=== PATIENT | male | born 1975 | race Caucasian/White ===

== ENCOUNTER 2020-08-24 11:03 | Emergency (ER) | payer OTHER ==
[~2020-08-24] VITALS: Ht 172.7 cm; Wt 58.4 kg
[2020-08-24] MEDS ORDERED: SODIUM CHLORIDE 0.9% 1,000ML IVBOLUS ONE (11:30)
[2020-08-24] MEDS ORDERED: SODIUM CHLORIDE FLUSH 10ML SYR IVF ONE (11:30)
[2020-08-24] MEDS ORDERED: LIDOCAINE-MPF 1%, 5ML ONE ×2 (11:41→15:47)
--- NOTE | 2020-08-24 11:46 | NUR ---
THIS IS A 45 YEAR OLD MALE WHO STATES HE WAS WORKING AND HAD "PASSED OUT" FELL FOWARD AND HIT HEAD WITH LARGE LACERATION. PT BS 172 ,PLACED ON BET TAKER SINUS, CONTINOUS SP02 AND CYCLE VS. IV INFUSING WELL. REPORT TO STEPHANIE JESUS, PLAN OF CARE DISCUSSED. MOTHER AT BS
[2020-08-24 11:59] LABS: BASOPHILS % (AUTO) 1 % (0-1); EOSINOPHILS % (AUTO) 0 % (1-7); LYMPHOCYTES % (AUTO) 4 % (22-44); MEAN CORPUSCULAR HEMOGLOBIN 33.1 pg (27.5-34.5); MEAN CORPUSCULAR HGB CONC 33.5 g/dL (33.2-36.2); MEAN PLATELET VOLUME 9.4 fL (7.4-10.4); MONOCYTES % (AUTO) 3 % (2-9); NEUTROPHILS % (AUTO) 92 % (42-75); PLATELET COUNT 178 x10^3/uL (130-400); RED BLOOD COUNT 4.47 x10^6/uL (4.38-5.82); RED CELL DISTRIBUTION WIDTH 13.5 % (9.4-14.8)
[2020-08-24] MEDS ORDERED: LIDOCAINE 1%-EPI 1:100K, 50ML INFIL ONE (12:00)
--- NOTE | 2020-08-24 12:04 | NUR ---
REPORT RC'VD FROM STEPHANIE JESUS. PT RETURNED FROM CT VIA ESTER. SIGNIFICANT OTHER AT BS.
--- NOTE | 2020-08-24 12:05 | NUR ---
REPORT RC'VD FROM STEPHANIE JESUS. PT RETURNED FROM CT VIA ESTER. SIGNIFICANT OTHER AT BS.
--- NOTE | 2020-08-24 12:05 | NUR ---
pt back from CT. wound irrigated and reassessed by CAROLA Samano. all monitors in place. pt a&o, repss even and unlabored, states pain at tolerable level. report given to ANN MARIE Donahue at bedside.
[2020-08-24 12:06] LABS: ALBUMIN 3.8 g/dL (3.4-5.0); ANION GAP 7 mmol/L (5-15); CALCIUM 8.6 mg/dL (8.5-10.1); CHLORIDE 103 mmol/L (98-107); CREATININE 1.07 mg/dL (0.7-1.3)
--- NOTE | 2020-08-24 12:09 | NUR ---
ER PA AT BS TO NUMB PT'S FOREHEAD LACERATION.
[2020-08-24 12:22] LABS: MD SCAN
[2020-08-24] MEDS ORDERED: CEFAZOLIN 1,000 MG IM ONE (14:00)
--- NOTE | 2020-08-24 14:00 | NUR ---
ER PA SUTURED PT'S FOREHEAD LACERATION, PT TOLERATED WELL. WARDROBE MANAGER AT BS TO APPLY ABX OINTMENT AND DRESSING (ADAPTIC, GAUZE, KERLIX, KOBAN WRAP).
[2020-08-24 15:00] VITALS: BP 143/76
--- NOTE | 2020-08-24 15:05 | NUR ---
D/C INSTRUCTIONS, MEDS & F/U APPT RV'WD WITH PT AND MOTHER. RX GIVEN X1. HEAD INJURY PRECAUTIONS RV'WD WITH PT AND MOTHER; MOTHER STATES SHE WILL LIVES IN THE SAME BUILDING PT AND CAN MONITOR HIM TODAY/TOMORROW. PT AMBULATED OUT OF ED WITH MOTHER WITHOUT DIFFICULTY.
--- NOTE | 2020-08-24 15:30 | NUR ---
ANCEF DOSE WAS MISSED PRIOR TO DISCHARGE. CALLED PT'S MOTHER BACK TO HAVE PT RETURN TO ED FOR IM INJECTION OF ANCEF PER ER PA. MOTHER STATES SHE WILL DRIVE PT BACK TO ED TODAY.
[2020-08-24] MEDS ORDERED: CEFAZOLIN 1,000 MG ONE (15:46)
--- NOTE | 2020-08-24 17:44 | NUR ---
PT RETURNED TO ED WITH MOTHER. DOSE OF IM ANCEF GIVEN PER ORDERS. PT STATES HE WAS ABLE TO TIMBER SIZER ABX RX FROM PHARMACY. PT AND MOTHER VERBALIZE UNDERSTANDING OF D/C INSTRUCTIONS AND BRAIN REST. PT AMBULATED OUT OF ED WITH MOTHER WITHOUT DIFFICULTY. Addendum: 08/24/20 at 2041 by JABIER EDUCATED PT AND MOTHER ABOUT POSSIBLE ADVERSE REACTIONS FROM ANCEF AND TO RETURN FOR ANY CONCERNING SYMPTOMS. PT REFUSES TO WAIT IN ED 30MIN POST INJECTION.
== END 2020-08-24 15:09 | disposition home or self-care (01) ==
LOC: ED 12:08
DX: S01.81XA Laceration without foreign body of other part of head, initial encounter (principal); T14.8XXA Other injury of unspecified body region, initial encounter; R94.31 Abnormal electrocardiogram [ECG] [EKG]; W18.39XA Other fall on same level, initial encounter; Y93.89 Activity, other specified; Y92.69 Other specified industrial and construction area as the place of occurrence of the external cause; Y99.0 Civilian activity done for income or pay
CPT/HCPCS: 12004; 36415; 70450; 80048; 82040; 85025; 93005; 96360; 96372; 99285; J0690; J3490; J7030

== ENCOUNTER 2020-09-03 14:05 | Emergency (ER) | payer OTHER ==
[~2020-09-03] VITALS: Ht 175.3 cm; Wt 58.3 kg
[2020-09-03 14:15] VITALS: BP 155/66
--- NOTE | 2020-09-03 15:46 | NUR ---
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
--- NOTE | 2020-09-03 16:42 | NUR ---
Patient given discharge instructions and they have confirmed that they understand the instructions. Patient ambulatory with steady gait.
== END 2020-09-03 16:43 | disposition home or self-care (01) ==
LOC: ED 15:14
DX: S01.01XD Laceration without foreign body of scalp, subsequent encounter (principal); Z48.02 Encounter for removal of sutures; X58.XXXD Exposure to other specified factors, subsequent encounter
CPT/HCPCS: 99283